=== PATIENT | female | born 1935 | race Caucasian/White ===

== ENCOUNTER 2018-08-30 12:21 | Emergency (ER) | payer MEDICARE ==
--- NOTE | 2018-08-30 13:07 | RAD ---
RIGHT FOREARM 2 VIEWS: Date: 08/30/18 INDICATION: History of injury. COMPARISON: None. FINDINGS: There is a comminuted, dorsally angulated distal radius fracture. Radiocapitellar alignment appears w ithin normal limits. There is moderate first [facility] osteoporosis. IMPRESSION: 1. Comminuted, dorsally impacted, dorsally angulated distal radius fracture. Dedicated right wrist r adiographs are recommended for further evaluation. 2. No additional acute osseous abnormality is evident. POS: [facility]
--- NOTE | 2018-08-30 13:43 | RAD ---
XR Wrist 3 Rt View STANDARD History: [Injury] Comparison: None. Findings: Intra-articular fracture distal radius with dorsal angulation and displacement. There is a fracture to the base of the ulnar styloid. Impression: Intra-articular distal radius fracture with dorsal angulation and displacement as well as a ulnar styloid fracture through the base.
== END 2018-08-30 13:59 | disposition home or self-care (01) ==
LOC: MADERS 12:21
DX: S52.571A Other intraarticular fracture of lower end of right radius, initial encounter for closed fracture (principal); S52.611A Displaced fracture of right ulna styloid process, initial encounter for closed fracture; W18.30XA Fall on same level, unspecified, initial encounter
CPT/HCPCS: 29125